=== PATIENT | female | born 2000 | race Caucasian/White ===

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

== ENCOUNTER 2021-07-22 13:13 | Emergency (ER) | payer OTHER ==
[2021-07-22] MEDS ORDERED: Sodium Chloride 0.9% 10 ML Syringe FLUSH PRN (14:11)
[2021-07-22] MEDS ORDERED: HYDROmorphone 0.5 MG/0.5 ML Syringe IVPUSH ONE ×2 (14:12→16:47)
--- NOTE | 2021-07-22 14:18 | EDM.PDOC ---
ED HPI GENERAL MEDICAL PROBLEM - General Chief Complaint: Abdominal Pain Stated Complaint: SEVERE RT SIDE ABD PAIN Time Seen by Provider: 07/22/21 14:00 Source of Information: Reports: Patient, Old Records History Limitations: Reports: No Limitations - History of Present Illness INITIAL COMMENTS - FREE TEXT/NARRATIVE: 21 yo female presents with RLQ abdominal pain that began yesterday morning and has progressed since. Has no appetite today. Feels a little warm. No vomiting or diarrhea or constipation. Is pretty sure she is not . No hx of any abdominal surgeries. Has not been seen before this visit for this. 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 (see below) (none) Right Lower Abdomen Pain Score (Numeric/FACES): 8 - Related Data Allergies Allergy/AdvReac Type Severity Reaction Status Date / Time No Known Allergies Allergy Verified 07/22/21 14:14 Home Meds: Home Meds Doxycycline [Vibra-Tabs] 100 mg PO Q12HR #19 tab 07/22/21 [Rx] Past Medical History - Past Health History Medical/Surgical History: Denies Medical/Surgical History HEENT History: Reports: Impaired Vision Neurological History: Reports: Migraines Psychiatric History: Reports: Anxiety, Bipolar, Depression - Infectious Disease History Infectious Disease History: Reports: Chicken Pox Social & Family History - Caffeine Use Caffeine Use: Reports: Coffee, Energy Drinks ED ROS GENERAL - Review of Systems Review Of Systems: See Below Constitutional: Reports: No Symptoms HEENT: Reports: No Symptoms Respiratory: Reports: No Symptoms Cardiovascular: Reports: No Symptoms GI/Abdominal: Reports: Abdominal Pain, Decreased Appetite, Nausea (at times). Denies: Black Stool, Constipation, Diarrhea, Vomiting : Reports: No Symptoms Musculoskeletal: Reports: No Symptoms Skin: Reports: No Symptoms ED EXAM, GI/ABD - Physical Exam Exam: See Below Exam Limited By: No Limitations General Appearance: Alert, WD/WN, Mild Distress Eyes: Bilateral: Normal Appearance Ears: Normal External Exam, Normal Canal, Hearing Grossly Normal Nose: Normal Inspection, No Blood Throat/Mouth: Normal Inspection, Normal Lips, Normal Oropharynx, Normal Voice, N o Airway Compromise Head: Atraumatic, Normocephalic Neck: Normal Inspection Respiratory/Chest: No Respiratory Distress, Lungs Clear, Normal Breath Sounds, No Accessory Muscle Use Cardiovascular: Regular Rate, Rhythm, No Edema GI/Abdominal Exam: Normal Bowel Sounds, Soft, No Distention, Guarding, Rigid, Rebound, Tender ([place]). No: Non-Tender, Distended Back Exam: Normal Inspection. No: CVA Tenderness (R), CVA Tenderness (L) Extremities: Normal Inspection, Normal Range of Motion, Non-Tender, No Pedal Edema. No: Pedal Edema Neurological: Alert, Oriented, CN II-XII Intact, Normal Cognition, No Motor/Sensory Deficits Psychiatric: Normal Affect, Normal Mood Skin Exam: Warm, Dry, Intact, Normal Color Course - Vital Signs Last Recorded V/S: Last Vital Signs Temp 37.3 C 07/22/21 14:14 Pulse 89 07/22/21 17:25 Resp 16 07/22/21 17:25 BP 98/64 07/22/21 17:25 Pulse Ox 97 07/22/21 17:25 - Orders/Labs/Meds Orders: Active Orders 24 hr Category Date Time Status CHLAMYDIA/GC AMPLIFICATION Stat Lab 07/22/21 16:48 Ordered WET PREP [MYC] Stat Lab 07/22/21 16:48 Ordered Sodium Chloride 0.9% [Normal Saline] 1,000 ml Med 07/22/21 15:00 Active IV ASDIRECTED Sodium Chloride 0.9% [Saline Flush] Med 07/22/21 14:11 Active 10 ml FLUSH ASDIRECTED PRN cefTRIAXone [Rocephin] 1 gm Med 07/22/21 17:54 Ordered Sodium Chloride 0.9% [Normal Saline] 50 ml IV ONETIME Saline Lock Insert [OM.PC] Routine Oth 07/22/21 14:11 Ordered Medication Orders Sodium Chloride (Normal Saline) 1,000 mls @ 125 mls/hr IV ASDIRECTED MYRA Last Admin: 07/22/21 15:47 Dose: 125 mls/hr Documented by: JUDD Ceftriaxone Sodium 1 gm/ (Sodium Chloride) 50 mls @ 100 mls/hr IV ONETIME ONE Stop: 07/22/21 18:23 Sodium Chloride (Sodium Chloride 0.9% 10 Ml Syringe) 10 ml FLUSH ASDIRECTED PRN PRN Reason: Keep Vein Open Last Admin: 07/22/21 14:30 Dose: 10 ml Documented by: JUDD Labs: Laboratory Tests 07/22/21 07/22/21 07/22/21 Range/Units 14:24 14:24 14:28 WBC 21.9 H (4.5-11.0) K/uL RBC 4.56 (3.30-5.50) M/uL Hgb 13.5 (12.0-15.0) g/dL Hct 40.4 (36.0-48.0) % MCV 89 (80-98) fL MCH 30 (27-31) pg MCHC 33 (32-36) % Plt Count 306 (150-400) K/uL Sodium (140-148) mmol/L Potassium (3.6-5.2) mmol/L Chloride (100-108) mmol/L Carbon Dioxide (21-32) mmol/L Anion Gap (5.0-14.0) mmol/L BUN (7-18) mg/dL Creatinine (0.6-1.0) mg/dL Est Cr Clr Drug Dosing mL/min Estimated GFR (MDRD) (>60) Glucose (74-106) mg/dL Calcium (8.5-10.1) mg/dL C-Reactive Protein (0.0-0.3) mg/dL Urine Color Yellow (YELLOW) Urine Appearance Clear (CLEAR) Urine pH 8.0 (5.0-8.0) Ur Specific [place] 1.020 (1.008-1.030) Urine Protein Negative (NEGATIVE) mg/dL Urine Glucose (UA) Negative (NEGATIVE) mg/dL Urine Ketones Negative (NEGATIVE) mg/dL Urine Occult Blood Negative (NEGATIVE) Urine Nitrite Negative (NEGATIVE) Urine Bilirubin Negative (NEGATIVE) Urine Urobilinogen 0.2 (0.2-1.0) EU/dL Ur Leukocyte Esterase Negative (NEGATIVE) Urine RBC 0-5 (0-5) Urine WBC 0-5 (0-5) Ur Epithelial Cells Occasional Amorphous Sediment Occasional Urine Bacteria Occasional Urine Mucus Occasional Urine HCG, Qual Negative 07/22/21 07/22/21 Range/Units 14:28 16:13 WBC (4.5-11.0) K/uL RBC (3.30-5.50) M/uL Hgb (12.0-15.0) g/dL Hct (36.0-48.0) % MCV (80-98) fL MCH (27-31) pg MCHC (32-36) % Plt Count (150-400) K/uL Sodium 137 L (140-148) mmol/L Potassium 4.0 (3.6-5.2) mmol/L Chloride 101 (100-108) mmol/L Carbon Dioxide 23 (21-32) mmol/L Anion Gap 17.0 H (5.0-14.0) mmol/L BUN 6 L (7-18) mg/dL Creatinine 0.7 (0.6-1.0) mg/dL Est Cr Clr Drug Dosing 79.88 mL/min Estimated GFR (MDRD) > 60 (>60) Glucose 89 (74-106) mg/dL Calcium 9.1 (8.5-10.1) mg/dL C-Reactive Protein 2.71 H (0.0-0.3) mg/dL Urine Color (YELLOW) Urine Appearance (CLEAR) Urine pH (5.0-8.0) Ur Specific [place] (1.008-1.030) Urine Protein (NEGATIVE) mg/dL Urine Glucose (UA) (NEGATIVE) mg/dL Urine Ketones (NEGATIVE) mg/dL Urine Occult Blood (NEGATIVE) Urine Nitrite (NEGATIVE) Urine Bilirubin (NEGATIVE) Urine Urobilinogen (0.2-1.0) EU/dL Ur Leukocyte Esterase (NEGATIVE) Urine RBC (0-5) Urine WBC (0-5) Ur Epithelial Cells Amorphous Sediment Urine Bacteria Urine Mucus Urine HCG, Qual Meds: Medications Generic Name Dose Route Start Last Admin Trade Name Freq PRN Reason Stop Dose Admin Sodium Chloride 1,000 mls @ 125 mls/hr 07/22/21 15:00 07/22/21 15:47 Normal Saline IV 125 mls/hr ASDIRECTED MYRA Administration Ceftriaxone Sodium 1 gm/ 50 mls @ 100 mls/hr 07/22/21 17:54 Sodium Chloride IV 07/22/21 18:23 ONETIME ONE Sodium Chloride 10 ml 07/22/21 14:11 07/22/21 14:30 Sodium Chloride 0.9% 10 Ml Syringe FLUSH 10 ml ASDIRECTED PRN Administration Keep Vein Open Discontinued Medications Generic Name Dose Route Start Last Admin Trade Name Freq PRN Reason Stop Dose Admin Doxycycline Hyclate 100 mg 07/22/21 17:55 Doxycycline 100 Mg Cap PO 07/22/21 17:56 ONETIME ONE Hydromorphone HCl 0.25 mg 07/22/21 14:12 07/22/21 14:29 Hydromorphone 0.5 Mg/0.5 Ml Syringe IVPUSH 07/22/21 14:13 0.25 mg ONETIME ONE Administration Hydromorphone HCl 0.25 mg 07/22/21 16:47 07/22/21 17:32 Hydromorphone 0.5 Mg/0.5 Ml Syringe IVPUSH 07/22/21 16:48 0.25 mg ONETIME ONE Administration Sodium Chloride 70 mls @ 3 mls/sec 07/22/21 15:15 07/22/21 15:31 Normal Saline IV 07/22/21 15:16 3 mls/sec ASDIRECTED MYRA Administration Iopamidol 58 ml 07/22/21 15:15 07/22/21 15:31 Iopamidol 612 Mg/Ml 100 Ml Bottle IV 07/22/21 15:16 58 ml . DIRECTED MYRA Administration Ketorolac Tromethamine 30 mg 07/22/21 16:47 07/22/21 17:32 Ketorolac 30 Mg/Ml Sdv IVPUSH 07/22/21 16:48 30 mg ONETIME ONE Administration Sodium Chloride 10 ml 07/22/21 15:03 07/22/21 15:31 Sodium Chloride 0.9% 10 Ml Syringe FLUSH 07/22/21 15:04 10 ml ONETIME ONE Administration - Radiology Interpretation Free Text/Narrative:: CT abd/pelvis with IV contrast-no def'n appendicitis Departure - Departure Time of Disposition: 18:15 Disposition: Home, Self-Care 01 Condition: Fair Clinical Impression: Pelvic infection - Discharge Information *PRESCRIPTION DRUG MONITORING PROGRAM REVIEWED*: Not Applicable *COPY OF PRESCRIPTION DRUG MONITORING REPORT IN PATIENT GABRIEL: Not Applicable Prescriptions: Doxycycline [Vibra-Tabs] 100 mg PO Q12HR #19 tab Referrals: PCP,None [Primary Care Provider] - Forms: ED Department Discharge Additional Instructions: Take doxycycline every 12 hrs, your next dose is due when [facility] opens tomorrow. Add ibuprofen 400 mg every 6 hrs and if needed acetaminophen 650 mg every 4-6 hrs for added relief. Drink ample fluids. See your doctor for recheck Saturday or Saturday. Return here if worse in the interim. Sepsis Event Note (ED) - Focused Exam Vital Signs: Vital Signs Temp Pulse Resp BP Pulse Ox 07/22/21 17:25 89 16 98/64 97 07/22/21 16:27 77 107/70 98 07/22/21 16:05 86 105/68 96 07/22/21 15:04 91 101/64 96 07/22/21 14:14 37.3 C 91 15 119/77 98 07/22/21 14:09 37.3 C 91 15 119/77 98 - My Orders Last 24 Hours: My Active Orders 07/22/21 14:11 Sodium Chloride 0.9% [Saline Flush] 10 ml FLUSH ASDIRECTED PRN Saline Lock Insert [OM.PC] Routine 07/22/21 15:00 Sodium Chloride 0.9% [Normal Saline] 1,000 ml IV ASDIRECTED 07/22/21 16:48 CHLAMYDIA/GC AMPLIFICATION Stat WET PREP [MYC] Stat 07/22/21 17:54 cefTRIAXone [Rocephin] 1 gm Sodium Chloride 0.9% [Normal Saline] 50 ml IV ONETIME - Assessment/Plan Last 24 Hours: My Active Orders 07/22/21 14:11 Sodium Chloride 0.9% [Saline Flush] 10 ml FLUSH ASDIRECTED PRN Saline Lock Insert [OM.PC] Routine 07/22/21 15:00 Sodium Chloride 0.9% [Normal Saline] 1,000 ml IV ASDIRECTED 07/22/21 16:48 CHLAMYDIA/GC AMPLIFICATION Stat WET PREP [MYC] Stat 07/22/21 17:54 cefTRIAXone [Rocephin] 1 gm Sodium Chloride 0.9% [Normal Saline] 50 ml IV ONETIME
[2021-07-22] MEDS ORDERED: Sodium Chloride 0.9% 1,000 ML IV SCH (15:00)
[2021-07-22] MEDS ORDERED: Sodium Chloride 0.9% 10 ML Syringe FLUSH ONE (15:03)
[2021-07-22] MEDS ORDERED: Iopamidol 612 MG/ML 100 ML Bottle IV SCH (15:15)
--- NOTE | 2021-07-22 15:57 | CRLCT ---
For Patients: As a result of the Century Cures Act, medical imaging exams and procedure reports are released immediately into your electronic medical record. You may view this report before your referring provider. If you have questions, please contact your health care provider. INDICATION: Right lower quadrant pain. COMPARISON: None. TECHNIQUE: 58 mL Isovue-300 IV contrast. FINDINGS: Solid viscera enhance normally. Gallbladder and biliary ducts are unremarkable. No adrenal nodule. Low riding cecum in the anterior right pelvis. Apparent appendix extending cephalad from this in the right lower quadrant. The proximal appendix is normal caliber. Distal appendix mildly prominent caliber at 10 mm with thin wall and no obvious periappendiceal stranding (image 137 series 3). Small amount of air in the lumen of the distal appendix. Normal right ovary. No fluid or air in the peritoneum. Moderate amount of stool in the colon. IMPRESSION: No definitive appendicitis. Upper normal caliber of the distal lumen although benign appearing mucosa and small amount of air in the intraluminal contents. Please note that all CT scans at this facility use dose modulation, iterative reconstruction, and/or weight-based dosing when appropriate to reduce radiation dose to as low as reasonably achievable. Dictated by Zack Perea MD @ 07/22/2021 3:57:10 PM (Electronically Signed)
[2021-07-22] MEDS ORDERED: Ketorolac 30 MG/ML SDV IVPUSH ONE (16:47)
[2021-07-22 17:35] VITALS: BP 98/64; PULSE 89
[2021-07-22] MEDS ORDERED: cefTRIAXone 1 GM in Sodium Chloride 0.9% 50 ML IV ONE (17:54)
[2021-07-22] MEDS ORDERED: Doxycycline 100 MG Cap PO ONE (17:55)
[2021-07-26 07:14] LABS: CHLAMYDIA TRACHOMATIS, NAA Negative (Negative); NEISSERIA GONORRHOEAE, NAA Negative (Negative)
== END 2021-07-22 18:55 | disposition home or self-care (01) ==
LOC: JP.ED 13:13
DX: N73.9 Female pelvic inflammatory disease, unspecified (principal)
CPT/HCPCS: 36415; 74177; 80048; 81001; 81025; 85027; 86140; 87210; 87491; 87591; 96365; 96375; 96376; 99284; A9270; J0696; J1170; J1885; J7030; Q9967